=== PATIENT | male | born 1955 | race Caucasian/White ===

== ENCOUNTER → 2017-09-23 | Outpatient (CLI) | payer BC ==
[~2017-09-23] MED LIST: ACHD5005 PO; AZTH250C PO; BACL10TA PO; GABA-488 PO; GLUC1500 PO; HYDR-3820 PO; HYDR-753 PO; LISI-552 PO; NAPR220C11 PO; OMG1KC PO; PRD20T PO; PROP15DR28 OU; RT-ALBUTEROL SULF 2.5 MG/3 ML PRE-MIX VIAL INH ONE; SLMFT1E INH
== END ==
LOC: RT 13:41
PROVIDERS: ATTEND Nurse Practitioner Family
DX: J45.909 Unspecified asthma, uncomplicated (principal); J44.9 Chronic obstructive pulmonary disease, unspecified
CPT/HCPCS: 94060; 94726; 94729

== ENCOUNTER → 2017-10-17 | Outpatient (CLI) | payer BC ==
[~2017-10-17] MED LIST changes: -GLUC1500 PO; +GLUC15006 PO; -RT-ALBUTEROL SULF 2.5 MG/3 ML PRE-MIX VIAL INH ONE
[2017-10-17 12:19] LABS: BASOPHILS % (AUTO) 0 % (0-10); EOSINOPHILS % (AUTO) 0 % (0-10); HEMATOCRIT 42 % (40-54); HEMOGLOBIN 14.9 G/DL (13.3-17.7); LYMPHOCYTES # (AUTO) 1.3 X 10^3 (1.0-4.0); LYMPHOCYTES % (AUTO) 7 % (12-44); MEAN CORPUSCULAR HEMOGLOBIN 33 PG (25-34); MEAN CORPUSCULAR HGB CONC 35 G/DL (32-36); MEAN CORPUSCULAR VOLUME 94 FL (80-99); MEAN PLATELET VOLUME 10.1 FL (7.4-10.4); MONOCYTES # (AUTO) 1.1 X 10^3 (0.0-1.0); MONOCYTES % (AUTO) 6 % (0-12); NEUTROPHILS # (AUTO) 16.5 X 10^3 (1.8-7.8); NEUTROPHILS % (AUTO) 87 % (42-75); PLATELET COUNT 214 10^3/uL (130-400); RED BLOOD COUNT 4.51 10^6/uL (4.35-5.85); RED CELL DISTRIBUTION WIDTH 12.7 % (10.0-14.5); WHITE BLOOD COUNT 18.9 10^3/uL (4.3-11.0)
--- NOTE | 2017-10-17 12:38 | Diagnostic Imaging Report ---
EXAMINATION: PA and lateral chest at 12:23 p.m. INDICATION: Wheezing. FINDINGS: The heart size is within normal limits and stable when compared to 11/11/2011. The prior exam suggested that there was left lower lobe pneumonia/atelectasis. On this study, the left lung base does seem better aerated. There is no evidence for pneumonia or for atelectasis involving either lung and there is no sign of a pleural effusion. The mediastinum is not widened. The osseous structures are intact. The orthopedic plate and screw fixation device overlying the lower cervical spine seen previously is again evident and no different. IMPRESSION: There is no evidence for an acute cardiopulmonary abnormality. Dictated by: Dictated on workstation # [id number]
[2017-10-17 12:58] LABS: BAND NEUTROPHILS 35 %; BASOPHILS % (MANUAL) 1 %; EOSINOPHILS % (MANUAL) 0 %; LYMPHOCYTES % (MANUAL) 7 %; MONOCYTES % (MANUAL) 3 %; NEUTROPHILS % (MANUAL) 54 %
[2017-10-17 12:59] LABS: RBC MORPH NORMAL
== END ==
LOC: RAD 11:47
PROVIDERS: ATTEND Nurse Practitioner Family
DX: J44.9 Chronic obstructive pulmonary disease, unspecified (principal); J30.9 Allergic rhinitis, unspecified
CPT/HCPCS: 36415; 71046; 85007; 85027

== ENCOUNTER → 2019-02-25 | Outpatient (CLI) | payer BC ==
[~2019-02-25] MED LIST changes: +HYDR-4196 PO; -HYDR-753 PO
--- NOTE | 2019-02-25 09:56 | Diagnostic Imaging Report ---
INDICATION: Hemoptysis. Asthma. Excessive sputum. Comparison made with prior examination 10/17/2017. PA and lateral views were obtained. FINDINGS: The heart size, mediastinal configuration, and pulmonary vascularity are within normal limits. There is no pleural effusion, pneumothorax, or pneumonia. The osseous structures are unremarkable. IMPRESSION: No acute cardiopulmonary abnormality. Dictated by: Dictated on workstation # [id number]
== END ==
LOC: RAD 08:59
PROVIDERS: ATTEND Nurse Practitioner Family
DX: J44.9 Chronic obstructive pulmonary disease, unspecified (principal); R04.2 Hemoptysis
CPT/HCPCS: 71046

== ENCOUNTER 2019-03-07 08:31 | Inpatient (IN) | payer BC ==
[~2019-03-07] VITALS: Ht 175.3 cm; Wt 83.6 kg
--- NOTE | 2019-03-07 09:00 | NUR ---
patient is resting quietly in bed with at bedside, denies needs at this time.
[2019-03-07] MEDS ORDERED: RT-ALBUTEROL/IPRATROPIUM 3 ML (DUONEB) VIAL INH ONE (09:15)
--- NOTE | 2019-03-07 09:19 | ED Respiratory ---
General Chief Complaint: Cough/Cold/Flu Symptoms Stated Complaint: COUGH Nursing Triage Note: hx of COPD c/o increased cough, excessive sputum for last 2 weeks, now fever last night. Source: patient Exam Limitations: no limitations History of Present Illness Date Seen by Provider: Mar 07, 2019 Time Seen by Provider: 09:06 Initial Comments Here with report of increasing cough over the last 3 weeks. Seen last week by his primary sheet rock applier, Dr. Wolfe and had an x-ray done as well as increase in therapy including prednisone. States she is not better in fact a little bit worse. His cough is worse and is productive of green or yellow or brown tinged sputum. Did have fevers last night. Has had pneumonia previously. States this doesn't feel as bad as some of his pneumonias but he definitely is not normal. Denies vomiting or diarrhea. Denies chest pain other than tightness. Timing/Duration: getting worse, other (3 weeks) Severity: moderate Prior Episodes/Possible Cause: occasional episodes Modifying Factors: Worse With Coughing; Improves With Rest Associated Symptoms: cough, fever/chills, muscle aches, nasal congestion, shortness of breath, wheezing Allergies and Home Medications Allergies Coded Allergies: hydromorphone HCl (Verified Adverse Reaction, Mild, RASH, 03/07/19) Home Medications Fluticasone Propionate 9.9 Ml [place].susp, 1 SPRAY NS DAILY, (Reported) 1 SPRAY EACH NARE DAILY Naproxen Sodium 220 Mg Capsule, 220 MG PO BID, (Reported) [place] 3 Polyunsat Fatty Acids 1,000 Mg Cap, 1,000 MG PO DAILY, (Reported) Patient Home Medication List Home Medication List Reviewed: Yes Review of Systems Review of Systems Constitutional: see HPI, chills, fever; No weakness EENTM: nose congestion, throat pain Respiratory: cough, short of breath, wheezing Cardiovascular: no symptoms reported Gastrointestinal: no symptoms reported Genitourinary: no symptoms reported Musculoskeletal: joint pain, muscle pain Skin: no symptoms reported Psychiatric/Neurological: No Symptoms Reported All Other Systems Reviewed Negative Unless Noted: Yes Past Nueruho-Fptitp-Gctdjv Hx Past Med/Social Hx: Reviewed Nursing Past Med/Soc Hx Patient Social History Alcohol Use: Regular Use Alcohol Beverage of Choice: Beer Recreational Drug Use: No Smoking Status: Never a Smoker 2nd Hand Smoke Exposure: No Recent Foreign Travel: No Contact w/Someone Who Travel: No Recent Infectious Disease Expo: No Immunizations Up To Date Date of Influenza Vaccine: Jul 07, 2018 Past Medical History Surgeries: Yes Appendectomy, Orthopedic Respiratory: Yes Asthma, COPD Cardiac: Yes Hypertension Neurological: No Genitourinary: No Gastrointestinal: No Musculoskeletal: Yes Chronic Back Pain Family Medical History Reviewed and Corrections made No Pertinent Family Hx Physical Exam Vital Signs - First Documented 03/07/19 03/07/19 03/07/19 08:40 09:17 09:45 Temp 98.6 Pulse 116 Resp 18 B/P (MAP) 122/73 (89) Pulse Ox 92 O2 Delivery Room Air O2 Flow Rate 2.00 Capillary Refill : Less Than 3 Seconds Height: 5'9.00" Weight: 185lbs. oz. 83.794576gd; 30.62 BMI Method:Stated General Appearance: WD/WN, no apparent distress HEENT: PERRL/EOMI, pharyngeal erythema Neck: full range of motion, supple Respiratory: no accessory muscle use, crackles, wheezing, expiration Cardiovascular: no murmur, tachycardia Gastrointestinal: non tender, soft Extremities: non-tender, normal inspection Neurologic/Psychiatric: alert, oriented x 3 Skin: normal color, warm/dry Focused Exam Lactate Level 03/07/19 09:40: Lactic Acid Level 0.94 Lactic Acid Level Laboratory Tests Test 03/07/19 09:40 Lactic Acid Level 0.94 MMOL/L (0.50-2.00) Progress/Results/Core Measures Suspected Sepsis Recent Fever Within 48 Hours: Yes Infection Criteria Present: Suspected New Infection New/Unexplained Altered Menta: No Sepsis Screen: Possible Sepsis Risk SIRS Temperature:98.6 Pulse: 116 Respiratory Rate: 18 Laboratory Tests 03/07/19 09:10: White Blood Count 19.6H Blood Pressure 122 /73 Mean: 89 03/07/19 09:40: Lactic Acid Level 0.94 Laboratory Tests 03/07/19 09:10: Creatinine 1.05, INR Comment 1.0, Platelet Count 191, Total Bilirubin 1.7H Results/Orders Lab Results Laboratory Tests Test 03/07/19 09:10 03/07/19 09:40 Range/Units White Blood Count 19.6 H 4.3-11.0 10^3/uL Red Blood Count 4.36 4.35-5.85 10^6/uL Hemoglobin 14.3 13.3-17.7 G/DL Hematocrit 41 40-54 % Mean Corpuscular Volume 94 80-99 FL Mean Corpuscular Hemoglobin 33 25-34 PG Mean Corpuscular Hemoglobin Concent 35 32-36 G/DL Red Cell Distribution Width 12.7 10.0-14.5 % Platelet Count 191 130-400 10^3/uL Mean Platelet Volume 10.2 7.4-10.4 FL Neutrophils (%) (Auto) 92 H 42-75 % Lymphocytes (%) (Auto) 3 L 12-44 % Monocytes (%) (Auto) 5 0-12 % Eosinophils (%) (Auto) 0 0-10 % Basophils (%) (Auto) 0 0-10 % Neutrophils # (Auto) 18.0 H 1.8-7.8 X 10^3 Lymphocytes # (Auto) 0.5 L 1.0-4.0 X 10^3 Monocytes # (Auto) 1.1 H 0.0-1.0 X 10^3 Eosinophils # (Auto) 0.0 0.0-0.3 10^3/uL Basophils # (Auto) 0.0 0.0-0.1 10^3/uL Neutrophils % (Manual) 79 % Lymphocytes % (Manual) 2 % Monocytes % (Manual) 9 % Eosinophils % (Manual) 1 % Band Neutrophils 9 % Blood Morphology Comment NORMAL Prothrombin Time 13.9 12.2-14.7 SEC INR Comment 1.0 0.8-1.4 Activated Partial Thromboplast Time 35 24-35 SEC Sodium Level 136 135-145 MMOL/L Potassium Level 3.9 3.6-5.0 MMOL/L Chloride Level 105 98-107 MMOL/L Carbon Dioxide Level 20 L 21-32 MMOL/L Anion Gap 11 5-14 MMOL/L Blood Urea Nitrogen 15 7-18 MG/DL Creatinine 1.05 0.60-1.30 MG/DL Estimat Glomerular Filtration Rate > 60 BUN/Creatinine Ratio 14 Glucose Level 102 70-105 MG/DL Calcium Level 9.4 8.5-10.1 MG/DL Corrected Calcium 9.6 8.5-10.1 MG/DL Total Bilirubin 1.7 H 0.1-1.0 MG/DL Aspartate Amino Transf (AST/SGOT) 13 5-34 U/L Alanine Aminotransferase (ALT/SGPT) 18 0-55 U/L Alkaline Phosphatase 55 40-136 U/L C-Reactive Protein High Sensitivity 14.67 H 0.00-0.50 MG/DL Total Protein 6.9 6.4-8.2 GM/DL Albumin 3.8 3.2-4.5 GM/DL Lactic Acid Level 0.94 0.50-2.00 MMOL/L My Orders Orders - JOSE WORLEY MD Cbc With Automated Diff (03/07/19 09:06) Comprehensive Metabolic Panel (03/07/19 09:06) Hs C Reactive Protein (03/07/19 09:06) Chest Pa/Lat (2 View) (03/07/19 09:06) Ed Iv/Invasive Line Start (03/07/19 09:06) Albuterol/Ipra Inhalation Soln (Duoneb I (03/07/19 09:15) Svn Small Volume Nebulizer (03/07/19 09:06) Manual Differential (03/07/19 09:10) Blood Culture (03/07/19 09:30) Sputum Culture (03/07/19 09:30) Protime With Inr (03/07/19 09:30) Partial Thromboplastin Time (03/07/19 09:30) Vital Signs Adult Sepsis Patie Q15M (03/07/19 09:30) O2 (03/07/19 09:30) Remove Rings In Anticipation O (03/07/19 09:30) Lactic Acid Analyzer (03/07/19 09:30) Ed Iv/Invasive Line Start (03/07/19 10:04) Lactated Ringers (Lr 1000 Ml Iv Solution (03/07/19 10:04) Cefepime Injection (Maxipime Injection) (03/07/19 10:45) Methylprednisolone Sod Succ (Solu-Medrol (03/07/19 10:45) General/Regular (03/07/19 Lunch) Medications Given in ED Current Medications Medications Dose Ordered Sig/David Route Start Time Stop Time Status Last Admin Dose Admin Albuterol/ Ipratropium 3 ml ONCE ONCE INH 03/07/19 09:15 03/07/19 09:16 DC 03/07/19 09:17 3 ML Cefepime HCl 1000 mg/Sterile Water 10 ml @ 200 mls/hr ONCE ONCE IV 03/07/19 10:45 03/07/19 10:48 DC 03/07/19 11:24 200 MLS/HR Lactated Ringer's 1,000 ml @ 0 mls/hr Q0M ONCE IV 03/07/19 10:04 03/07/19 10:05 DC 03/07/19 10:17 1,000 MLS/HR Methylprednisolone Sodium Succinate 125 mg ONCE ONCE IVP 03/07/19 10:45 03/07/19 10:48 DC 03/07/19 11:24 125 MG Vital Signs/I&O 03/07/19 03/07/19 03/07/19 03/07/19 08:40 09:17 09:40 09:45 Temp 98.6 98.6 Pulse 116 114 Resp 18 18 B/P (MAP) 122/73 (89) 119/64 Pulse Ox 92 94 96 96 O2 Delivery Room Air Nasal Cannula O2 Flow Rate 2.00 Capillary Refill : Less Than 3 Seconds Blood Pressure Mean: 89 Progress Note : Progress Note Seen and evaluated. IV, labs, chest x-ray, do not have ordered. Monitor patient. Patient is noted to have blood pressure initially 100 systolic range. LR 1 L bolus. No indication of need for high volume fluid resuscitation but would benefit from fluid administration. Pending remainder of labs and chest x-ray. 1027: Left lower lobe pneumonia noted with white count of 19,000 and elevated CRP. Lactic acid negative. Given his history and current findings, inpatient admission is indicated. I did discuss the case with Dr. Wolfe and he agrees. We will initiate cefepime 1 g IV now as well as Solu-Medrol 125 mg IV. I did discuss the case with Dr. Coleman at 1042 and he accepts patient for admission. Inpatient status. Patient and family agree with plan. Diagnostic Imaging Diagonstic Imaging: Xray Plain Films/CT/US/NM/MRI: chest Comments [facility], [place] NAME: DIANELYS MENDES [facility] REC#: [id number] PT STATUS: REG ER : 1955 PHYSICIAN: JOSE WORLEY MD ADMIT DATE: 03/07/19/ER Draft Date of Exam:03/07/19 CHEST PA/LAT (2 VIEW) INDICATION: Increasing cough. TIME OF EXAM: 9:25 AM CORRELATION is made with prior chest from 02/25/2019. FINDINGS: Heart size is normal. There is some patchy infiltrate that has developed in the left lower lobe consistent with pneumonia. There may be minimal infiltrate in the right base as well. Mid and upper lung banuelos are clear. There is no pneumothorax. Postop changes lower cervical spine are identified. IMPRESSION: Patchy left lower lobe pneumonia. Dictated on workstation # [id number] Dict: 03/07/19 0934 Trans: 03/07/19 0938 [facility] [id number] Interpreted by: OSMANY IRENE MD Electronically signed by: Departure Communication (Admissions) Time/Spoke to Admitting Phy: 10:42 Time/Spoke to Consulting Phy: 10:27 Impression Primary Impression: Left lower lobe pneumonia Qualified Codes: J18.1 - Lobar pneumonia, unspecified organism Disposition: ADMITTED INPATIENT Condition: Stable Admissions Decision to Admit Reason: Admit from ER (General) Decision to Admit/Date: Mar 07, 2019 Time/Decision to Admit Time: 10:27 Departure-Patient Inst. Referrals: ARIS MUSA DO (PCP/Family) Primary Care Physician JOSE WORLEY MD Mar 07, 2019 09:19
[2019-03-07 09:22] LABS: BASOPHILS % (AUTO) 0 % (0-10); EOSINOPHILS % (AUTO) 0 % (0-10); HEMATOCRIT 41 % (40-54); HEMOGLOBIN 14.3 G/DL (13.3-17.7); LYMPHOCYTES # (AUTO) 0.5 X 10^3 (1.0-4.0); LYMPHOCYTES % (AUTO) 3 % (12-44); MEAN CORPUSCULAR HEMOGLOBIN 33 PG (25-34); MEAN CORPUSCULAR HGB CONC 35 G/DL (32-36); MEAN CORPUSCULAR VOLUME 94 FL (80-99); MEAN PLATELET VOLUME 10.2 FL (7.4-10.4); MONOCYTES # (AUTO) 1.1 X 10^3 (0.0-1.0); MONOCYTES % (AUTO) 5 % (0-12); NEUTROPHILS % (AUTO) 92 % (42-75); PLATELET COUNT 191 10^3/uL (130-400); RED CELL DISTRIBUTION WIDTH 12.7 % (10.0-14.5); WHITE BLOOD COUNT 19.6 10^3/uL (4.3-11.0)
--- NOTE | 2019-03-07 09:38 | Diagnostic Imaging Report ---
INDICATION: Increasing cough. TIME OF EXAM: 9:25 AM CORRELATION is made with prior chest from 02/25/2019. FINDINGS: Heart size is normal. There is some patchy infiltrate that has developed in the left lower lobe consistent with pneumonia. There may be minimal infiltrate in the right base as well. Mid and upper lung banuelos are clear. There is no pneumothorax. Postop changes lower cervical spine are identified. IMPRESSION: Patchy left lower lobe pneumonia. Dictated by: Dictated on workstation # [id number]
[2019-03-07 09:40] LABS: ALANINE AMINOTRANSFERASE 18 U/L (0-55); ALBUMIN 3.8 GM/DL (3.2-4.5); ALKALINE PHOSPHATASE 55 U/L (40-136); BILIRUBIN,TOTAL 1.7 MG/DL (0.1-1.0); BUN/CREATININE RATIO 14; CALCIUM 9.4 MG/DL (8.5-10.1); CARBON DIOXIDE 20 MMOL/L (21-32); CHLORIDE 105 MMOL/L (98-107); CREATININE SERUM 1.05 MG/DL (0.60-1.30); GFR ESTIMATED > 60; GLUCOSE 102 MG/DL (70-105); POTASSIUM 3.9 MMOL/L (3.6-5.0); SODIUM 136 MMOL/L (135-145); TOTAL PROTEIN 6.9 GM/DL (6.4-8.2)
--- NOTE | 2019-03-07 09:40 | NUR ---
in room to draw blood cultures and lactic acid
[2019-03-07] MEDS ORDERED: LACTATED RINGERS 1,000 ML IV ONE (10:04)
[2019-03-07 10:05] LABS: BAND NEUTROPHILS 9 %; EOSINOPHILS % (MANUAL) 1 %; LYMPHOCYTES % (MANUAL) 2 %; MONOCYTES % (MANUAL) 9 %; NEUTROPHILS % (MANUAL) 79 %; RBC MORPH NORMAL
[2019-03-07] MEDS ORDERED: tumeric (10:05)
[2019-03-07] MEDS ORDERED: LOSA100T57 PO (10:05)
[2019-03-07] MEDS ORDERED: ALBU2.5V4 NEB (10:05)
[2019-03-07] MEDS ORDERED: MONT10TA24 PO (10:05)
[2019-03-07] MEDS ORDERED: NFIPRATRNS NS (10:05)
[2019-03-07] MEDS ORDERED: FLUT9.9S NS (10:13)
[2019-03-07] MEDS ORDERED: GLUC-144 PO (10:13)
[2019-03-07] MEDS ORDERED: FISH1CAP15 PO (10:13)
[2019-03-07] MEDS ORDERED: FLUT1BLS IH (10:13)
[2019-03-07] MEDS ORDERED: NAPR220C11 PO (10:13)
[2019-03-07] MEDS ORDERED: CETI10TA23 PO (10:13)
[2019-03-07 10:19] LABS: PROTHROMBIN TIME PATIENT 13.9 SEC (12.2-14.7)
--- NOTE | 2019-03-07 10:30 | NUR ---
assisted patient to the bathroom and back to bed
[2019-03-07] MEDS ORDERED: CEFEPIME INJECTION 1,000 MG in WATER (STERILE) FOR INJECTION 10 ML IV ONE (10:45)
[2019-03-07] MEDS ORDERED: methylPREDNISolone 125 MG (Solu-MEDROL) VIAL IVP ONE (10:45)
--- NOTE | 2019-03-07 11:17 | NUR ---
REPORT RECEIVED FROM CJ WYATT IN ED. WILL ASSUME CARE OF PT WHEN ARRIVES TO FLOOR.
--- NOTE | 2019-03-07 11:45 | NUR ---
called [employer] to place lunch order for patient. patient was offered menu for selections.
[2019-03-07 12:07] VITALS: BP 144/72
--- NOTE | 2019-03-07 12:10 | NUR ---
Pt admitted to room 419-1, with an admitting diagnosis of left lowe lobe pneumonia , [facility] accompanied by and ED staff .Pt was introduced to surroundings, call light, bed controls, phone, TV, temperature control, lights, and meal times. Patient Rights given to patient in the handbook. IV to left AC intact. Pt denies any pain at this time. Call light within reach.
[2019-03-07] MEDS ORDERED: NS IV 1000 ML 1,000 ML IV SCH (12:22)
--- OUTSIDE RECORDS SUMMARY | 2019-03-07 12:24 | XMS REPORT ---
Author Author MARIPOSA PEOPLES Organization [facility] Address [address] [place] [address] Care Team Providers Care Fitter Up Name Role Phone MIKAYLA PEOPLESICE Unavailable PROBLEMS Unknown Problems ALLERGIES No Known Allergies SOCIAL HISTORY Never Assessed PLAN OF CARE Activity Details Follow Up prn Reason: VITAL SIGNS Height 69 in 2016-10-01 Weight 191.6 lbs 2016-10-01 Temperature 97.4 degrees Fahrenheit 2016-10-01 Heart Rate 78 bpm 2016-10-01 Respiratory Rate 18 2016-10-01 BMI 28.29 kg/m2 2016-10-01 Blood pressure systolic 138 mmHg 2016-10-01 Blood pressure diastolic 88 mmHg 2016-10-01 MEDICATIONS Medication Instructions Dosage Frequency Start Date End Date Duration Status ProAir HFA 108 (90 Base) MCG/ACT Inhalation every 4 hrs 2 puffs as needed 4h Sep, 30 days Active Aleve 220 MG Orally every 12 hrs 1 tablet as needed 12h Active Lisinopril 20 MG Active Glucosamine 500 MG Orally Once a day 1 capsule with a meal 24h Active PredniSONE 20 MG Orally Once a day 2 tablet 24h Sep, Sep, 5 days Active Fish Oil 1000 MG Orally Once a day 1 capsule 24h Active Advair Diskus 100-50 MCG/DOSE Inhalation Twice a day 1 puff 12h Active RESULTS No Results PROCEDURES No Known procedures IMMUNIZATIONS No Known Immunizations MEDICAL (GENERAL) HISTORY Type Description Date Surgical History appendix 1965 Surgical History herniated disk surgery 2011 Surgical History left shoulder surgery 2011 Surgical History right knee scope 2014 Surgical History herniated disk surgery 2015 Hospitalization History surgery 1965 Hospitalization History surgery 2012 Hospitalization History pneumonia X 3
[2019-03-07] MEDS ORDERED: IBUPROFEN 600 MG (MOTRIN) TAB PO PRN (12:30)
[2019-03-07] MEDS ORDERED: ACETAMINOPHEN 500 MG TAB (TYLENOL) PO PRN (12:30)
[2019-03-07] MEDS ORDERED: NS IV ONE (12:30)
[2019-03-07] MEDS: NS IV 1000 ML 1,000 ML IV SCH ×2 (14:00→20:35)
[2019-03-07 15:00] VITALS: BP 144/72
[2019-03-07] MEDS ORDERED: RT-ALBUTEROL/IPRATROPIUM 3 ML (DUONEB) VIAL INH PRN (15:15)
[2019-03-07 15:46] VITALS: BP 142/76
[2019-03-07] MEDS: CEFEPIME 1,000 MG/SWFI 10 ML IV PUSH IV SCH ×4 (18:24→23:36)
[2019-03-07] MEDS: methylPREDNISolone 125 MG (Solu-MEDROL) VIAL IV SCH ×2 (18:25→23:36)
[2019-03-07] MEDS: RT-ALBUTEROL/IPRATROPIUM 3 ML (DUONEB) VIAL INH SCH ×2 (18:57→21:10)
[2019-03-07 19:54] VITALS: BP 165/70
[2019-03-07 23:50] VITALS: BP 167/77
[2019-03-08] MEDS: RT-ALBUTEROL/IPRATROPIUM 3 ML (DUONEB) VIAL INH SCH ×6 (01:34→21:11)
[2019-03-08 04:00] VITALS: BP 169/80
[2019-03-08] MEDS: NS IV 1000 ML 1,000 ML IV SCH (05:24)
[2019-03-08] MEDS: methylPREDNISolone 125 MG (Solu-MEDROL) VIAL IV SCH (05:25)
[2019-03-08] MEDS: CEFEPIME 1,000 MG/SWFI 10 ML IV PUSH IV SCH ×6 (05:25→18:29)
[2019-03-08 06:12] LABS: BASOPHILS % (AUTO) 0 % (0-10); EOSINOPHILS % (AUTO) 0 % (0-10); HEMATOCRIT 37 % (40-54); HEMOGLOBIN 12.7 G/DL (13.3-17.7); LYMPHOCYTES # (AUTO) 0.7 X 10^3 (1.0-4.0); LYMPHOCYTES % (AUTO) 4 % (12-44); MEAN CORPUSCULAR HEMOGLOBIN 33 PG (25-34); MEAN CORPUSCULAR HGB CONC 34 G/DL (32-36); MEAN CORPUSCULAR VOLUME 96 FL (80-99); MEAN PLATELET VOLUME 10.5 FL (7.4-10.4); MONOCYTES # (AUTO) 0.4 X 10^3 (0.0-1.0); MONOCYTES % (AUTO) 2 % (0-12); NEUTROPHILS # (AUTO) 18.9 X 10^3 (1.8-7.8); NEUTROPHILS % (AUTO) 94 % (42-75); PLATELET COUNT 219 10^3/uL (130-400); RED CELL DISTRIBUTION WIDTH 12.8 % (10.0-14.5); WHITE BLOOD COUNT 20.1 10^3/uL (4.3-11.0)
--- NOTE | 2019-03-08 06:30 | Pulmonary Consultation ---
History of Present Illness History of Present Illness Date of Consultation 03/08/19 06:27 Date of Admission Allergies and Home Medications Allergies Coded Allergies: hydromorphone HCl (Verified Adverse Reaction, Mild, RASH, 03/07/19) Home Medications Fluticasone Propionate 9.9 Ml [place].susp, 1 SPRAY NS DAILY, (Reported) 1 SPRAY EACH NARE DAILY Naproxen Sodium 220 Mg Capsule, 220 MG PO BID, (Reported) [place] 3 Polyunsat Fatty Acids 1,000 Mg Cap, 1,000 MG PO DAILY, (Reported) Past Zakoygk-Pxevyy-Pkcoaw Hx Past Med/Social Hx: Reviewed Nursing Past Med/Soc Hx Patient Social History Alcohol Use: Regular Use Alcohol Beverage of Choice: Beer Recreational Drug Use: No Smoking Status: Never a Smoker 2nd Hand Smoke Exposure: No Recent Foreign Travel: No Contact w/Someone Who Travel: No Recent Infectious Disease Expo: No Immunizations Up To Date Date of Pneumonia Vaccine: Jul 07, 2017 Date of Influenza Vaccine: Jul 07, 2018 Past Medical History Surgeries: Yes Appendectomy, Orthopedic Respiratory: Yes Asthma, COPD Cardiac: Yes Hypertension Neurological: No Genitourinary: No Gastrointestinal: No Musculoskeletal: Yes Chronic Back Pain Family Medical History Reviewed and Corrections made Arthritis 19 FATHER Hypertension 19 FATHER 19 MOTHER G8 BROTHER G8 BROTHER G8 BROTHER Parkinson's disease 19 MOTHER No Pertinent Family Hx Sepsis Event Evaluation Height, Weight, BMI Height: 5'9.00" Weight: 184lbs. 5.0oz. 83.400048to; 30.62 BMI Method:Stated Exam Exam Vital Signs Date Time Temp Pulse Resp B/P (MAP) Pulse Ox O2 Delivery O2 Flow Rate FiO2 03/08/19 04:00 99.1 105 20 169/80 (109) 93 Nasal Cannula 2.00 03/08/19 01:35 93 Nasal Cannula 2.00 03/07/19 23:50 99.2 102 20 167/77 (107) 95 Room Air 03/07/19 21:11 92 Nasal Cannula 2.00 03/07/19 20:00 95 Room Air 2.00 03/07/19 19:54 99.4 117 20 165/70 (101) 95 Room Air 03/07/19 18:57 93 Nasal Cannula 2.00 03/07/19 15:46 98.4 100 18 142/76 (98) 95 Nasal Cannula 2.00 03/07/19 15:00 105 94 03/07/19 12:50 94 Nasal Cannula 2.00 03/07/19 12:07 98.6 105 18 144/72 94 Nasal Cannula 2.00 03/07/19 12:07 98.6 105 18 144/72 94 Nasal Cannula 2.00 03/07/19 12:07 98.6 105 18 144/72 (96) 94 Nasal Cannula 2.00 03/07/19 11:55 98.6 97 18 128/76 (93) 94 Nasal Cannula 2.00 03/07/19 09:45 96 Nasal Cannula 2.00 03/07/19 09:40 98.6 114 18 119/64 96 03/07/19 09:17 94 Room Air 03/07/19 08:40 98.6 116 18 122/73 (89) 92 I & O 03/08/19 07:00 Intake Total 5265 ml Balance 5265 ml Height & Weight Height: 5'9.00" Weight: 184lbs. 5.0oz. 83.461921kk; 30.62 BMI Method:Stated Capillary Refill: Less Than 3 Seconds Gastrointestinal: non tender, soft Results Lab Laboratory Tests 03/07/19 09:10 03/08/19 05:24 Assessment/Plan Assessment/Plan Pneumonia - failed out pt tx -Cefepime -Chen culture, MRSA swab -SVNS -Oxygen Moderate COPD -SVNS Allergic rhinitis -Lino Castillo JASON M DO Mar 08, 2019 06:29
[2019-03-08 06:31] LABS: ALANINE AMINOTRANSFERASE 16 U/L (0-55); ALBUMIN 3.4 GM/DL (3.2-4.5); ALKALINE PHOSPHATASE 56 U/L (40-136); BILIRUBIN,TOTAL 0.4 MG/DL (0.1-1.0); BUN/CREATININE RATIO 13; CARBON DIOXIDE 17 MMOL/L (21-32); CHLORIDE 111 MMOL/L (98-107); CREATININE SERUM 0.89 MG/DL (0.60-1.30); GFR ESTIMATED > 60; GLUCOSE 178 MG/DL (70-105); POTASSIUM 3.8 MMOL/L (3.6-5.0); SODIUM 137 MMOL/L (135-145); TOTAL PROTEIN 6.3 GM/DL (6.4-8.2)
[2019-03-08 08:00] VITALS: BP 178/74
--- NOTE | 2019-03-08 08:30 | NUR ---
UA TO LAB AND MRSA NASAL SWAB TO LAB.
[2019-03-08] MEDS: LORATADINE (CLARITIN) 10 MG TAB PO SCH (08:33)
[2019-03-08 08:37] LABS: BILIRUBIN,URINE NEGATIVE (NEGATIVE); CLARITY,URINE CLEAR; COLOR,URINE YELLOW; GLUCOSE, URINE (UA) NEGATIVE (NEGATIVE); KETONES,URINE NEGATIVE (NEGATIVE); LEUKOCYTE ESTERASE ,URINE NEGATIVE (NEGATIVE); NITRITE,URINE NEGATIVE (NEGATIVE); PH,URINE 6.5 (5-9); PROTEIN,URINE NEGATIVE (NEGATIVE); UROBILINOGEN,URINE NORMAL (NORMAL)
[2019-03-08 08:44] LABS: BACTERIA,URINE TRACE /HPF
[2019-03-08] MEDS ORDERED: VANCOMYCIN INJECTION 1,000 MG in NS (IVPB) 250 ML IV SCH (10:15)
[2019-03-08] MEDS ORDERED: VANCOMYCIN INJECTION 0.1 MG in NS (IVPB) 250 ML IV SCH (10:15)
[2019-03-08] MEDS ORDERED: VANCOMYCIN 1,750 MG/NS 500 ML IVPB IV NR ×2 (10:30)
--- NOTE | 2019-03-08 10:35 | NUR ---
CR 0.89; CR CL > 80; WT 83.6 KG; VANCO 1750 MG IV BOLUS THEN 1250 MG IV Q12H; TROUGH AFTER 4TH DOSE
[2019-03-08 12:00] VITALS: BP 179/69
[2019-03-08] MEDS ORDERED: methylPREDNISolone 125 MG (Solu-MEDROL) VIAL IV SCH (12:00)
--- NOTE | 2019-03-08 13:38 | History & Physical-Hospitalist ---
History of Present Illness HPI/Chief Complaint The patient is a 64-year-old white male known to me for 20 years or more. 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 He felt better from Saturday through Saturday with variable sputum production. He was not aware of a fever. He then came to the emergency room yesterday and was admitted. His chest x-ray showed modest infiltrate in the left base. The white blood count was 20,000. This morning microbiology called me and reported that he was growing staph aureus from 3 out of 4 plating's. Date Seen 03/08/19 Time Seen by a Provider: 13:35 Attending Physician Carlos Mcrae MD PCP Derian Marrero DO Referring Physician Date of Admission Mar 07, 2019 at 10:52 Home Medications & Allergies Home Medications Reviewed patient Home Medication Reconciliation performed by pharmacy medication reconciliations plant technician/control room operator and/or nursing. Patients Allergies have been reviewed. Allergies Allergies Coded Allergies hydromorphone HCl (Verified Adverse Reaction, Mild, RASH, 03/07/19) Past Gcwknvy-Krpltz-Yrrlyl Hx Past Med/Social Hx: Reviewed Nursing Past Med/Soc Hx Patient Social History Alcohol Use: Regular Use Alcohol Beverage of Choice: Beer Recreational Drug Use: No Smoking Status: Never a Smoker 2nd Hand Smoke Exposure: No Recent Foreign Travel: No Contact w/other who traveled: No Recent Infectious Disease Expo: No Immunizations Up To Date Date of Pneumonia Vaccine: Jul 07, 2017 Date of Influenza Vaccine: Jul 07, 2018 Past Medical History Surgeries: Appendectomy, Orthopedic Cardiac: Hypertension Musculoskeletal: Chronic Back Pain Family History Reviewed and Corrections made Arthritis 19 FATHER Hypertension 19 FATHER 19 MOTHER G8 BROTHER G8 BROTHER G8 BROTHER Parkinson's disease 19 MOTHER No Pertinent Family Hx Review of Systems Constitutional: see HPI EENTM: no symptoms reported Respiratory: see HPI, cough Cardiovascular: no symptoms reported Gastrointestinal: no symptoms reported Genitourinary: no symptoms reported Musculoskeletal: no symptoms reported Skin: no symptoms reported Psychiatric/Neurological: No Symptoms Reported Physical Exam Physical Exam Vital Signs Vital Signs - First Documented 03/07/19 03/07/19 03/07/19 08:40 09:17 09:45 Temp 98.6 Pulse 116 Resp 18 B/P (MAP) 122/73 (89) Pulse Ox 92 O2 Delivery Room Air O2 Flow Rate 2.00 Capillary Refill : Less Than 3 SecondsLess Than 3 Seconds Height, Weight, BMI Height: 5'9.00" Weight: 184lbs. 5.0oz. 83.072533ye; 30.62 BMI Method:Stated Results Results/Procedures Labs Laboratory Tests 03/07/19 09:10 03/08/19 05:24 Patient resulted labs reviewed. Clinical Quality Measures DVT/VTE Risk/Contraindication: Risk Factor Score Per Nursin RFS Level Per Nursing on Admit: 4+=Very High CARLOS MCRAE MD Mar 08, 2019 13:38
[2019-03-08] MEDS: methylPREDNISolone 40 MG/ML (Solu-MEDROL) VIAL IV SCH ×2 (13:47→18:31)
[2019-03-08 15:44] VITALS: BP 154/67
[2019-03-08 19:46] VITALS: BP 174/81
[2019-03-08] MEDS: VANCOMYCIN 1250 MG/NS 250 ML IVPB IV SCH ×2 (21:32)
[2019-03-08] MEDS: MONTELUKAST 10 MG (SINGULAIR) TAB PO SCH (21:32)
[2019-03-08] MEDS: guaiFENesin/CODEINE (ROBITUSSIN AC) 10ML UDC PO PRN (22:30)
[2019-03-09] VITALS: BP 134/66
[2019-03-09] MEDS: CEFEPIME 1,000 MG/SWFI 10 ML IV PUSH IV SCH ×8 (00:50→18:51)
[2019-03-09] MEDS: methylPREDNISolone 40 MG/ML (Solu-MEDROL) VIAL IV SCH ×3 (00:50→12:18)
[2019-03-09] MEDS: RT-ALBUTEROL/IPRATROPIUM 3 ML (DUONEB) VIAL INH SCH ×5 (01:24→21:41)
[2019-03-09 04:00] VITALS: BP 140/78
[2019-03-09] MEDS: guaiFENesin/CODEINE (ROBITUSSIN AC) 10ML UDC PO PRN (04:25)
[2019-03-09] MEDS: NS IV 1000 ML 1,000 ML IV SCH (04:26)
[2019-03-09 08:27] VITALS: BP 154/77
[2019-03-09] MEDS: LORATADINE (CLARITIN) 10 MG TAB PO SCH (09:30)
[2019-03-09] MEDS: VANCOMYCIN 1250 MG/NS 250 ML IVPB IV SCH ×4 (10:46→21:43)
[2019-03-09] MEDS ORDERED: RT-ALBUINH INH (11:59)
[2019-03-09] MEDS ORDERED: TURM538C PO (11:59)
[2019-03-09] MEDS ORDERED: CETI10TA17 PO (11:59)
[2019-03-09] MEDS ORDERED: TURM500C4 PO (12:13)
[2019-03-09] MEDS ORDERED: TIOT4MIS2 IH (12:13)
--- NOTE | 2019-03-09 12:14 | NUR ---
SPOKE WITH THE PATIENT ABOUT HIS MEDICATIONS. HE HAD A LIST WITH HIM AND I COMPARED WITH THE EXT MED HX. HE STATES HE RECEIVED SAMPLES OF HIS SPIRIVA INHALER.
[2019-03-09 12:44] VITALS: BP 164/70
[2019-03-09 13:19] LABS: BASOPHILS % (AUTO) 0 % (0-10); EOSINOPHILS % (AUTO) 0 % (0-10); HEMATOCRIT 41 % (40-54); HEMOGLOBIN 13.5 G/DL (13.3-17.7); LYMPHOCYTES # (AUTO) 0.8 X 10^3 (1.0-4.0); LYMPHOCYTES % (AUTO) 4 % (12-44); MEAN CORPUSCULAR HEMOGLOBIN 32 PG (25-34); MEAN CORPUSCULAR HGB CONC 33 G/DL (32-36); MEAN CORPUSCULAR VOLUME 97 FL (80-99); MEAN PLATELET VOLUME 10.6 FL (7.4-10.4); MONOCYTES % (AUTO) 5 % (0-12); NEUTROPHILS # (AUTO) 18.1 X 10^3 (1.8-7.8); NEUTROPHILS % (AUTO) 91 % (42-75); PLATELET COUNT 244 10^3/uL (130-400); RED CELL DISTRIBUTION WIDTH 12.9 % (10.0-14.5); WHITE BLOOD COUNT 19.9 10^3/uL (4.3-11.0)
--- NOTE | 2019-03-09 14:33 | Pulmonary Progress Note ---
Subjective Time Seen by a Provider: 14:33 Subjective/Events-last exam Pt complains of persistent cough. Sepsis Event Evaluation Height, Weight, BMI Height: 5'9.00" Weight: 184lbs. 5.0oz. 83.521170kt; 30.62 BMI Method:Stated Focused Exam Lactate Level 03/07/19 09:40: Lactic Acid Level 0.94 Exam Exam Vital Signs Date Time Temp Pulse Resp B/P (MAP) Pulse Ox O2 Delivery O2 Flow Rate FiO2 03/09/19 12:44 98.6 109 25 164/70 (101) 97 Room Air 0.00 03/09/19 11:10 92 Room Air 03/09/19 08:27 98.7 92 24 154/77 (102) 95 Room Air 0.00 03/09/19 08:00 95 Room Air 03/09/19 07:35 94 Room Air 03/09/19 04:00 96.8 99 16 140/78 (98) 95 Nasal Cannula 2.00 03/09/19 01:24 95 Room Air 1.00 03/09/19 00:00 96.3 99 18 134/66 (88) 95 Nasal Cannula 2.00 03/08/19 21:12 95 Nasal Cannula 1.00 03/08/19 20:00 Room Air 03/08/19 19:46 99.2 104 20 174/81 (112) 96 Nasal Cannula 2.00 03/08/19 15:44 98.6 108 20 154/67 (96) 97 Nasal Cannula 2.00 I & O 03/09/19 07:00 Intake Total 5627.5 ml Balance 5627.5 ml Height & Weight Height: 5'9.00" Weight: 184lbs. 5.0oz. 83.904924qs; 30.62 BMI Method:Stated General Appearance: No Apparent Distress, Anxious HEENT: PERRL/EOMI, Normal ENT Inspection, Pharynx Normal Neck: Full Range of Motion, Normal Inspection, Non Tender, Carotid Bruit Respiratory: Chest Non Tender, No Accessory Muscle Use, No Respiratory Distress Cardiovascular: Regular Rate, Rhythm, No Edema, No Gallop Capillary Refill: Less Than 3 Seconds Gastrointestinal: non tender, soft Extremity: Normal Capillary Refill, Normal Inspection, No Pedal Edema Neurologic/Psychiatric: Alert, Oriented x3 Skin: Normal Color, Warm/Dry Lymphatic: No Adenopathy Results Lab Laboratory Tests 03/08/19 05:24 03/09/19 12:58 Assessment/Plan Assessment/Plan Pneumonia - failed out pt tx -Cefepime - MRSA swab -Is negative -SVNS -Oxygen -Recheck labs in AM Bacteremia with Staph Aureus -Continue Vanco until sensitivities are posted -Check echocardiogram Moderate COPD -SVNS -D/C solumedrol Allergic rhinitis -Lino Castillo JASON M DO Mar 09, 2019 14:33
--- NOTE | 2019-03-09 15:06 | NUR ---
Pt is [facility]. Received Communion yesterday but does not require it daily. Refuge Worker offered blessing.
[2019-03-09 15:25] VITALS: BP 166/78
--- NOTE | 2019-03-09 15:41 | Progress Note-Hospitalist ---
Progress Note Progress Notes/Assess & Plan Date Seen 03/09/19 Time Seen by Provider: 15:38 Assessment & Plan The patient reports he is feeling better. I still have no micro-report as to the MRSA status of his bacteremia. He reports he is bored but otherwise doing well. Physical exam: Lungs are clear to auscultation. There is some muffling of breath sounds. CV is regular. No skin lesions are noted. Impression: Staph aureus bacteremia. Plan: Continue present coverage for MRSA. Focused Exam Lactate Level 03/07/19 09:40: Lactic Acid Level 0.94 SPENSER MCRAE MD Mar 09, 2019 15:41
[2019-03-09 19:52] VITALS: BP 183/82
[2019-03-09] MEDS: MONTELUKAST 10 MG (SINGULAIR) TAB PO SCH (20:32)
[2019-03-09] MEDS: LOSARTAN 100 MG (COZAAR) TABLET PO SCH (20:32)
[2019-03-09] MEDS: RT-ADVAIR HFA 115/21 MCG PER PUFF IH SCH (21:41)
[2019-03-10] MEDS: CEFEPIME 1,000 MG/SWFI 10 ML IV PUSH IV SCH ×4 (00:07→06:13)
[2019-03-10] MEDS: guaiFENesin/CODEINE (ROBITUSSIN AC) 10ML UDC PO PRN (00:12)
[2019-03-10 00:15] VITALS: BP 153/72
[2019-03-10] MEDS: RT-ALBUTEROL/IPRATROPIUM 3 ML (DUONEB) VIAL INH SCH ×3 (03:00→12:02)
[2019-03-10 03:59] VITALS: BP 146/84
[2019-03-10 05:54] LABS: BASOPHILS % (AUTO) 0 % (0-10); EOSINOPHILS % (AUTO) 0 % (0-10); HEMATOCRIT 38 % (40-54); HEMOGLOBIN 12.2 G/DL (13.3-17.7); LYMPHOCYTES # (AUTO) 1.6 X 10^3 (1.0-4.0); LYMPHOCYTES % (AUTO) 9 % (12-44); MEAN CORPUSCULAR HEMOGLOBIN 31 PG (25-34); MEAN CORPUSCULAR HGB CONC 32 G/DL (32-36); MEAN CORPUSCULAR VOLUME 96 FL (80-99); MEAN PLATELET VOLUME 10.6 FL (7.4-10.4); MONOCYTES # (AUTO) 1.4 X 10^3 (0.0-1.0); MONOCYTES % (AUTO) 8 % (0-12); NEUTROPHILS # (AUTO) 14.3 X 10^3 (1.8-7.8); NEUTROPHILS % (AUTO) 83 % (42-75); PLATELET COUNT 277 10^3/uL (130-400); WHITE BLOOD COUNT 17.2 10^3/uL (4.3-11.0)
[2019-03-10 06:06] LABS: BUN/CREATININE RATIO 18; CALCIUM 8.8 MG/DL (8.5-10.1); CARBON DIOXIDE 17 MMOL/L (21-32); CHLORIDE 110 MMOL/L (98-107); CREATININE SERUM 0.88 MG/DL (0.60-1.30); GFR ESTIMATED > 60; GLUCOSE 99 MG/DL (70-105); MAGNESIUM 2.2 MG/DL (1.8-2.4); PHOSPHORUS 2.9 MG/DL (2.3-4.7); POTASSIUM 4.1 MMOL/L (3.6-5.0); SODIUM 137 MMOL/L (135-145)
[2019-03-10] MEDS: RT-ADVAIR HFA 115/21 MCG PER PUFF IH SCH (06:38)
--- NOTE | 2019-03-10 07:13 | Pulmonary Progress Note ---
Sepsis Event Evaluation Height, Weight, BMI Height: 5'9.00" Weight: 184lbs. 5.0oz. 83.775282dt; 30.62 BMI Method:Stated Focused Exam Lactate Level 03/07/19 09:40: Lactic Acid Level 0.94 03/10/19 05:16: Lactic Acid Level 1.90 Lactic Acid Level Laboratory Tests Test 03/10/19 05:16 Lactic Acid Level 1.90 MMOL/L (0.50-2.00) Exam Exam Vital Signs Date Time Temp Pulse Resp B/P (MAP) Pulse Ox O2 Delivery O2 Flow Rate FiO2 03/10/19 06:50 Room Air 03/10/19 06:38 93 Room Air 03/10/19 03:59 98.7 99 20 146/84 (104) 93 Room Air 03/10/19 03:00 95 Room Air 03/10/19 00:15 98.5 92 20 153/72 (99) 93 Room Air 03/09/19 21:41 98 Room Air 03/09/19 21:41 95 Room Air 03/09/19 20:00 93 Room Air 0.00 03/09/19 19:52 98.7 99 20 183/82 (115) 95 Room Air 03/09/19 15:25 98.5 97 22 166/78 (107) 93 Room Air 03/09/19 15:25 94 Room Air 03/09/19 12:44 98.6 109 25 164/70 (101) 97 Room Air 0.00 03/09/19 12:30 20 Room Air 03/09/19 11:10 92 Room Air 03/09/19 08:27 98.7 92 24 154/77 (102) 95 Room Air 0.00 03/09/19 08:00 95 Room Air 03/09/19 07:35 94 Room Air I & O 03/10/19 07:00 Intake Total 3062.5 ml Balance 3062.5 ml Height & Weight Height: 5'9.00" Weight: 184lbs. 5.0oz. 83.592753ps; 30.62 BMI Method:Stated General Appearance: No Apparent Distress, Anxious HEENT: PERRL/EOMI, Normal ENT Inspection, Pharynx Normal Neck: Full Range of Motion, Normal Inspection, Non Tender, Carotid Bruit Respiratory: Chest Non Tender, No Accessory Muscle Use, No Respiratory Distress Cardiovascular: Regular Rate, Rhythm, No Edema, No Gallop Capillary Refill: Less Than 3 Seconds Gastrointestinal: non tender, soft Extremity: Normal Capillary Refill, Normal Inspection, No Pedal Edema Neurologic/Psychiatric: Alert, Oriented x3 Skin: Normal Color, Warm/Dry Lymphatic: No Adenopathy Results Lab Laboratory Tests 03/09/19 12:58 03/10/19 05:16 Assessment/Plan Assessment/Plan Pneumonia - failed out pt tx -Cefepime and vanco - awaiting sensitivities - Repeat CXR - MRSA swab -Is negative -SVNS -Oxygen -Recheck labs in AM Bacteremia with Staph Aureus -Continue Vanco until sensitivities are posted -Check echocardiogram Moderate COPD -SVNS -D/C solumedrol Allergic rhinitis -Lino Castillo JASON M DO Mar 10, 2019 07:13
[2019-03-10 08:00] VITALS: BP 174/72
[2019-03-10] MEDS: LOSARTAN 100 MG (COZAAR) TABLET PO SCH (08:38)
[2019-03-10] MEDS: LORATADINE (CLARITIN) 10 MG TAB PO SCH (08:38)
[2019-03-10] MEDS ORDERED: TROUGH ORDER-PHARMACY XX NR (09:30)
--- NOTE | 2019-03-10 10:56 | Progress Note-Hospitalist ---
Progress Note Progress Notes/Assess & Plan Date Seen 03/10/19 Time Seen by Provider: 10:53 Assessment & Plan The patient continues to feel better. His white blood count has been in the 15- 20,000 range however he has been receiving steroids. The culture and sensitivity have returned and the staph aureus is not MRSA. I then discussed this with Dr. Wolfe and he can be discharged at this time. He will need to see Dr. Wolfe in 2 weeks with likely follow-up x-rays. Physical exam: He remains slightly hoarse. Lungs show some scattered rhonchi in the left posterior base. CV is regular. Abdomen is soft. Impression: Staph aureus bacteremia. 2.left lower lobe pneumonia with failed outpatient treatment Plan: Discharge. See discharge sequence for medications and routines. Focused Exam Lactate Level 03/10/19 05:16: Lactic Acid Level 1.90 SPENSER MCRAE MD Mar 10, 2019 10:56
[2019-03-10] MEDS ORDERED: AMOX-358 PO (10:58)
--- NOTE | 2019-03-10 11:01 | Discharge Inst-Simple/Standard ---
Discharge Inst-Standard Discharge Medications New, Converted or Re-Newed RX: Transmitted to Pharmacy Patient Instructions/Follow Up Plan of Care/Instructions/FU: Medications as listed on the discharge sequence. Increase activities as tolerated. Appointment with Dr. Wolfe in approximately 2 weeks. Take all of the antibiotics prescribed to you. Activity as Tolerated: Yes Goal: Clearence of symptoms. Discharge Diet: No Restrictions Return to The Hospital For: Return of symptoms/functional decline SPENSER MCRAE MD Mar 10, 2019 11:01
--- NOTE | 2019-03-10 12:24 | Diagnostic Imaging Report ---
EXAMINATION: Portable erect AP chest at 8:31 AM. INDICATION: Respiratory distress. FINDINGS: The heart size is stable when compared to the prior exam of 03/07/2019. The previous study did show left lower lobe pneumonia/atelectasis. On this exam, the left lung base does seem better aerated although there is still some residual density present. A new small focus of pneumonia/atelectasis has also developed in the left midlung. The left upper lung and the right lung are generally clear. The mediastinum is not widened. The osseous structures are intact. The orthopedic hardware overlying the lower cervical spine seen previously is again evident. IMPRESSION: The appearance of the chest has improved since the prior exam as the left lung base does seem better aerated; however, there is still some residual pneumonia/atelectasis in the left lung base and a new small focus of pneumonia/atelectasis has developed in the left midlung. A followup study would be recommended for continued evaluation. Dictated by: Dictated on workstation # [id number]
--- NOTE | 2019-03-13 09:20 | Physician Query Clarification ---
PQ-Intro New Diagnosis Admission/Discharge Admission Date: Mar 07, 2019 at 10:52 Discharge Date: Mar 10, 2019 at 12:30 The medical record reflects the following clinical scenario: History/Risk Factors: Lobar pneumonia with failed outpatient treatment. Fever before admission. Clinical Findings: WBC 19.6 Bands 9, T 98.6, Pulse 116, Resp 18, BP 122/73, Lactic acid 0.94. Positive blood culture for Staph Aureus. Treatment: IV Cefepime HCI, IV Vancomycin HCI Question: What condition best reflects the above clinical scenario? Please document a response in the Progress Noter or Discharge Summary. 1. Bacteremia due to Staph Aureus with sepsis. 2. Bacteremia due to Staph Aureus without sepsis. 3. Other, with explanation of the clinical findings. 4. Clinically undetermined, no explanation for the clinical findings. Please remember a lack of response to the above will prompt a phone page by [facility] staff. In responding to this query, please exercise your independent professional judgment. The purpose of this communication is to more accurately reflect the complexity of your patients condition. The fact that a question is asked does not imply that any particular answer is desired or expected. Thank you for your timely response to this clarification. Requestors name: Rosie Mendoza [facility] Phone # ext [phone] or [phone] THIS PHYSICIAN QUERY FORM IS A PERMANENT PART OF THE MEDICAL RECORD ROSIE MENDOZA Mar 13, 2019 09:20 SUHAS SELF Mar 17, 2019 08:48
== END 2019-03-10 12:30 | disposition home or self-care (01) | DRG 871 ==
LOC: EDUNIT# 08:31 → ER 08:32 → 4TH 10:52
PROVIDERS: ADMIT Internal Medicine; ATTEND Internal Medicine
DX: A41.01 Sepsis due to Methicillin susceptible Staphylococcus aureus (principal); J15.211 Pneumonia due to Methicillin susceptible Staphylococcus aureus; J44.0 Chronic obstructive pulmonary disease with (acute) lower respiratory infection; J30.9 Allergic rhinitis, unspecified; I10 Essential (primary) hypertension; M54.9 Dorsalgia, unspecified
CPT/HCPCS: 36415; 71045; 71046; 80048; 80053; 80202; 81000; 83605; 83735; 83880; 84100; 85007; 85025; 85027; 85610; 85730; 86141; 87040; 87070; 87077; 87081; 87186; 87205; 93306; 94640; 94664; 94760; 96365; 96375

== ENCOUNTER → 2019-03-16 | Outpatient (CLI) | payer BC ==
[~2019-03-16] MED LIST changes: +ALBU2.5V4 NEB; +AMOX-358 PO; +CETI10TA17 PO; +CETI10TA23 PO; +FISH1CAP15 PO; +FLUT1BLS IH; +FLUT9.9S NS; +GLUC-144 PO; +LOSA100T57 PO; +MONT10TA24 PO; +NFIPRATRNS NS; +RT-ALBUINH INH; +TIOT4MIS2 IH; +TURM500C4 PO; +TURM538C PO; +tumeric
--- NOTE | 2019-03-16 20:16 | Diagnostic Imaging Report ---
PA and lateral chest at 202 hours. INDICATION: Asthma with pneumonia. FINDINGS: The heart size is within normal limits and stable when compared to 03/10/2019. The prior exam did note areas of pneumonia/atelectasis involving the left lung base. On this exam, the left lung base does seem better aerated. There is only a very small amount of residual atelectasis/infiltrate still present. Left upper lung and right lung remain generally clear. The mediastinum is not widened. The osseous structures are intact. The orthopedic hardware overlying the lower cervical spine is again evident. IMPRESSION: The appearance of the chest has improved since the prior exam as the left lung base does seem better aerated. There is only a very small amount of residual pneumonia/atelectasis still present. Dictated by: Dictated on workstation # [id number]
== END ==
LOC: RAD 13:53
PROVIDERS: ATTEND Internal Medicine Critical Care Medicine
DX: J44.9 Chronic obstructive pulmonary disease, unspecified (principal); J18.9 Pneumonia, unspecified organism; Z96.698 Presence of other orthopedic joint implants
CPT/HCPCS: 71046

== ENCOUNTER 2019-03-18 05:46 | Outpatient (CLI) | payer BC ==
[~2019-03-18] VITALS: Ht 175.3 cm; Wt 83.6 kg
[~2019-03-18 05:46] MED LIST changes: -HOLD METFORMIN - RECEIVED CONTRAST 20 ML VIAL IV SCH; -IOHEXOL 350 MG/ML 100 ML (OMNIPAQUE 350) VIAL IV ONE; -NS 100 ML (IVPB) BAG IV ONE
== END 2019-03-18 13:53 | disposition home or self-care (01) ==
LOC: PREOP 05:46
PROVIDERS: ATTEND Internal Medicine Critical Care Medicine
DX: Z01.818 Encounter for other preprocedural examination (principal)

== ENCOUNTER → 2019-03-18 | Outpatient (CLI) | payer BC ==
[~2019-03-18] MED LIST changes: +HOLD METFORMIN - RECEIVED CONTRAST 20 ML VIAL IV SCH; +IOHEXOL 350 MG/ML 100 ML (OMNIPAQUE 350) VIAL IV ONE; +NS 100 ML (IVPB) BAG IV ONE
[2019-03-18 13:12] LABS: BUN/CREATININE RATIO 22; CREATININE SERUM 0.87 MG/DL (0.60-1.30); GFR ESTIMATED > 60
--- NOTE | 2019-03-18 14:37 | Diagnostic Imaging Report ---
PROCEDURE: CT chest with contrast only. TECHNIQUE: Multiple contiguous axial images were obtained through the chest after administration of intravenous contrast. Auto Exposure Controls were utilized during the CT exam to meet ALARA standards for radiation dose reduction. INDICATION: Pneumonia. COMPARISON: Limited chest radiograph 03/16/2019. Bilateral patchy and groundglass infiltrates involving the dependent portions of both lower lobes and left upper lobe to a lesser extent. Lower lobe disease has some centrilobular nodularity and branching pattern with tree-in-bud morphology. Findings raise the question of infective bronchiolitis. No abscess or empyema. No effusion or pneumothorax. Lung volumes normal. There is no mass or lymphadenopathy. The aorta is patent and nonaneurysmal. The visualized upper abdomen unremarkable. IMPRESSION: 1. Bilateral infiltrates greatest in the lower lobes and partially involving the left upper lobe raising the question of infective bronchiolitis which could be from a viral pattern or reflect atypical mycobacterial infection or other etiology. 2. No evidence for abscess, empyema, mass or adenopathy. Dictated by: Dictated on workstation # [id number]
== END ==
LOC: RAD 12:26
PROVIDERS: ATTEND Nurse Practitioner Family
DX: J18.9 Pneumonia, unspecified organism (principal); J44.9 Chronic obstructive pulmonary disease, unspecified; J40 Bronchitis, not specified as acute or chronic; J30.9 Allergic rhinitis, unspecified
CPT/HCPCS: 36415; 71260; 82565; 84520

== ENCOUNTER 2019-03-19 06:59 | Day surgery (SDC) | payer BC ==
[~2019-03-19] VITALS: Ht 175.3 cm; Wt 83.6 kg
[2019-03-19] MEDS ORDERED: LIDOCAINE PF 1% 2 ML VIAL IJ ONE (07:00)
[2019-03-19] MEDS ORDERED: LIDOCAINE JELLY 2% 6 ML SYRINGE TOP ONE (07:00)
[2019-03-19] MEDS ORDERED: LIDOCAINE PF 2% 5 ML (XYLOCAINE) VIAL INJ ONE (07:00)
[2019-03-19] MEDS ORDERED: NS IV 500 ML 500 ML ONE ×2 (07:04→08:16)
[2019-03-19] MEDS ORDERED: LACTATED RINGERS 1,000 ML IV PRN (07:09)
[2019-03-19] MEDS ORDERED: fentaNYL INJECTION 100 MCG/2 ML AMP IVP ONE (07:15)
[2019-03-19] MEDS ORDERED: MIDAZOLAM 2 MG/2 ML (VERSED) VIAL IVP ONE (07:15)
[2019-03-19 07:25] VITALS: BP 138/81
[2019-03-19] MEDS: NS IV 500 ML 500 ML IV PRN ×2 (07:30→08:20)
[2019-03-19] MEDS ORDERED: MIDAZOLAM 2 MG/2 ML (VERSED) VIAL ONE ×4 (07:43→08:55)
[2019-03-19] MEDS ORDERED: fentaNYL INJECTION 100 MCG/2 ML AMP ONE ×2 (07:43→08:55)
[2019-03-19 09:40] VITALS: BP 169/80
[2019-03-19 10:09] VITALS: BP 169/80
[2019-03-19 10:10] VITALS: BP 169/80
--- NOTE | 2019-03-19 10:28 | Diagnostic Imaging Report ---
EXAMINATION: Portable erect AP chest at 10 AM INDICATION: Post bronchoscopy Reportedly, the patient underwent bronchoscopy earlier today. There is no sign of a pneumothorax. In the interval since the prior study of 03/16/2019 mild bibasilar atelectasis/infiltrate has developed. The lungs are otherwise clear. The heart is stable. The mediastinum is not widened. The osseous structures are intact. IMPRESSION: 1. There is no evidence for pneumothorax following bronchoscopy. 2. Mild bibasilar atelectasis/infiltrate has developed in the interval since the prior study. A followup exam should be considered for further evaluation. Dictated by: Dictated on workstation # [id number]
[2019-03-19 12:09] LABS: BF OTHER CELLS 9 %; BODY FLUID APPEARENCE CLOUDY; BODY FLUID COLOR YELLOW; BODY FLUID SOURCE BROCH WASH; LYMPHOCYTES,BODY FLUID 46 %
--- NOTE | 2019-03-19 12:19 | Diagnostic Imaging Report ---
EXAM: Fluoroscopy INDICATION: Bronchoscopy FINDINGS: Fluoroscopic assistance was provided for Dr. Wolfe during his bronchoscopic procedure. 2.7 seconds of fluoroscopy time was visualized. 2 spot films of the left thorax were obtained. IMPRESSION: Fluoroscopic assistance was provided for Dr. Wolfe. Dictated by: Dictated on workstation # [id number]
--- NOTE | 2019-03-19 16:52 | Pulmonary Procedures ---
Pulmonary Procedures Date of Procedure Date of Service: Mar 19, 2019 Bronch Bronchoscopy with RML bronchoalveolar lavage (BAL), bilateral bronchial washes and, transbronchial RML brushes. Preop DX PNA Postop DX: same Complications: none After informed consent obtained and formal time out pt was sedated using Fen tanyl and Versed. Bronchoscope was advanced through the nare and vocal cords. 1% lidocaine was used to anesthetize vocal cords, epiglottis, jolie, and left/right main stem bronchus. An anatomical tour was undertaken down to the segmental bronchi bilaterally. No endobronchial lesions noted. RML bronchoalveolar lavage (BAL), bilateral bronchial washes and, transbronchial RML brushes were obtained. Pt tolerated procedure well. No complications noted. Stat CXR is pending. JULIANA MENDOZA DO Mar 19, 2019 16:52
== END 2019-03-19 10:20 | disposition home or self-care (01) ==
LOC: ENDO 06:59
PROVIDERS: ATTEND Internal Medicine Critical Care Medicine
DX: J18.9 Pneumonia, unspecified organism (principal); J44.0 Chronic obstructive pulmonary disease with (acute) lower respiratory infection; J45.909 Unspecified asthma, uncomplicated; I10 Essential (primary) hypertension; Z79.899 Other long term (current) drug therapy
CPT/HCPCS: 71045; 87015; 87070; 87101; 87116; 87205; 87206; 89051

== ENCOUNTER → 2019-04-02 | Outpatient (CLI) | payer BC | LOC: SLEEP 14:51 | PROVIDERS: ATTEND Nurse Practitioner Family | DX: G47.19 Other hypersomnia (principal); R06.83 Snoring; R05 Cough; J45.909 Unspecified asthma, uncomplicated ==

== ENCOUNTER → 2019-06-09 | Outpatient (CLI) | payer BC ==
[~2019-06-09] MED LIST changes: +HOLD METFORMIN - RECEIVED CONTRAST 20 ML VIAL IV SCH; +IOHEXOL 350 MG/ML 100 ML (OMNIPAQUE 350) VIAL IV ONE; +NS 100 ML (IVPB) BAG IV ONE
[2019-06-09 12:25] LABS: BUN/CREATININE RATIO 15; CREATININE SERUM 1.05 MG/DL (0.60-1.30); GFR ESTIMATED > 60
--- NOTE | 2019-06-09 13:27 | Diagnostic Imaging Report ---
PROCEDURE: CT chest with contrast only. TECHNIQUE: Multiple contiguous axial images were obtained through the chest after administration of intravenous contrast. Auto Exposure Controls were utilized during the CT exam to meet ALARA standards for radiation dose reduction. INDICATION: Abnormal CT scan of the chest and COPD. Comparison is made to examination of 03/18/2019. The lungs are currently clear without evidence of mass or infiltrate. There is no significant pleural or pericardial fluid. There is no evidence of pathologic adenopathy within the thorax. Upper abdominal sections reveal low density liver indicating steatosis. IMPRESSION: Resolution of bilateral pulmonary opacities without evidence of acute abnormality or adverse change. Dictated by: Dictated on workstation # [id number]
== END ==
LOC: RAD 11:38
PROVIDERS: ATTEND Nurse Practitioner Family
DX: J44.9 Chronic obstructive pulmonary disease, unspecified (principal); J30.9 Allergic rhinitis, unspecified; J18.9 Pneumonia, unspecified organism
CPT/HCPCS: 36415; 71260; 82565; 84520

== ENCOUNTER → 2019-06-16 | Outpatient (CLI) | payer BC ==
[~2019-06-16] MED LIST changes: -HOLD METFORMIN - RECEIVED CONTRAST 20 ML VIAL IV SCH; -IOHEXOL 350 MG/ML 100 ML (OMNIPAQUE 350) VIAL IV ONE; -NS 100 ML (IVPB) BAG IV ONE
--- NOTE | 2019-06-16 11:06 | Diagnostic Imaging Report ---
PROCEDURE: MRI lumbar spine. TECHNIQUE: Multiplanar, multisequence MRI of the lumbar spine was performed without contrast. INDICATION: Left foot numbness. Low back surgery 4 years ago. COMPARISON: 03/21/2015 FINDINGS: 5 lumbar type vertebral bodies are visualized with the last well-formed disc space designated L5-S1. No acute fracture or dislocation is seen in the lumbar spine. Alignment is anatomic. Vertebral heights and disc spaces are well-maintained. The bone marrow signal is normal. The conus terminates at the L1 level. No masses are seen associated with the conus or nerve roots of the cauda equina. No epidural collections are identified. Multilevel degenerative changes are seen in the lumbar spine with disc bulges, facet hypertrophy, and buckling of the ligamentum flavum. T12-L1: No significant spinal canal or foraminal stenosis. L1-L2: No significant spinal canal or foraminal stenosis. L2-L3: No significant spinal canal or foraminal stenosis. L3-L4: Facet hypertrophy and buckling of ligamentum flavum results in no significant spinal canal narrowing and no significant foraminal narrowing. L4-L5: Broad-based disc bulge with annular fissure, facet hypertrophy, and buckling of the ligamentum flavum results in moderate spinal canal narrowing and mild right and moderate left foraminal stenosis. L5-S1: Broad-based disc bulge with annular fissure, facet hypertrophy, and buckling of results in no significant spinal canal narrowing and mild left and moderate to severe right foraminal narrowing. Compared to the prior exam, the disc bulge has decreased, likely representing postsurgical changes of microdiscectomy. Paravertebral soft tissues are unremarkable. IMPRESSION: 1. No acute fracture or dislocation in the lumbar spine. 2. Multilevel degenerative changes in the lumbar spine, greatest at L4-L5 and L5-S1. Prior microdiscectomy changes are noted at the L5-S1 level. No evidence of significant disc bulge or recurrence at this time. Dictated by: Dictated on workstation # [id number]
== END ==
LOC: RAD 09:17
PROVIDERS: ATTEND Physician Assistant
DX: M47.817 Spondylosis without myelopathy or radiculopathy, lumbosacral region (principal); Z98.1 Arthrodesis status
CPT/HCPCS: 72148

== ENCOUNTER 2019-07-24 08:53 | Outpatient (RCR) | payer BC | END 2019-08-24 10:58 | disposition home or self-care (01) | PROVIDERS: ATTEND Orthopaedic Surgery Orthopaedic Surgery of the Spine | DX: M48.061 Spinal stenosis, lumbar region without neurogenic claudication (principal); Z98.1 Arthrodesis status; Z98.890 Other specified postprocedural states ==

== ENCOUNTER → 2021-03-09 | Outpatient (CLI) | payer BC, MEDICARE ==
[~2021-03-09] MED LIST changes: +ACHYD1T PO; -HYDR-3820 PO; -LISI-552 PO; +LISI20TA26 PO; -MONT10TA24 PO; +MONT10TA32 PO; +RT-ALBUTEROL SULF 2.5 MG/3 ML PRE-MIX VIAL INH ONE
--- NOTE | 2021-03-09 15:23 | Diagnostic Imaging Report ---
INDICATION: Asthma. Time of exam 12:52 p.m. Correlation is made with prior chest 03/19/2019. FINDINGS: The heart size is normal. The pulmonary vascularity is unremarkable. The lungs are clear. No infiltrate, effusion or pneumothorax is detected. IMPRESSION: No acute cardiopulmonary process is detected. Dictated by: Dictated on workstation # [id number]
== END ==
LOC: RT 12:20
PROVIDERS: ATTEND Internal Medicine Critical Care Medicine
DX: J44.9 Chronic obstructive pulmonary disease, unspecified (principal)
CPT/HCPCS: 71046; 94060; 94621; 94726; 94729